=== PATIENT | female | born 1940 | race Caucasian/White ===

== ENCOUNTER 2018-08-10 15:49 | Emergency (ER) | payer OTHER, MEDICAID ==
--- NOTE | 2018-08-10 15:49 | NUR ---
Pt is bib [facility] ambulance for full arrest. Per EMT, pt was at home, on couch, passed out, soiled herself, fell over and was foaming at the mouth. Paramedics arrived at 1530, CPR was performed, pt was given 4 rounds of epinephrine and 1 bicarb. Pt arrived in ED with full arrest. See cardiac arrest flowsheet for further details.
[2018-08-10] MEDS ORDERED: AMIODARONE HCL 900 MG in D5W 482 ML IV PRN (16:15)
--- NOTE | 2018-08-10 16:15 | NUR ---
Patient not known to be of DNR status. Respiratory therapy at bedside prior to placement. Size 7.5 ET tube placed by 21 cm at lip line. Cuff inflated with 10 cc of air. Auscultation of breath sounds over bilateral chest wall. ET tube secured with tape.
--- NOTE | 2018-08-10 16:23 | NUR ---
Daughter at bedside requesting to terminate ressucitative efforts at this time.
--- NOTE | 2018-08-10 16:25 | NUR ---
was pronounced by Dr. Benoit at 1625.
--- NOTE | 2018-08-10 16:32 | NUR ---
[facility] was called, spoke to January. Per January, there is no case for the chancellor due to no suspected case of drug use or abuse.
--- NOTE | 2018-08-10 18:02 | NUR ---
Called [facility] at and spoke with Dm. Referral ID is [id number].
--- NOTE | 2018-08-10 18:26 | NUR ---
Spoke with Teressa with [facility] .
--- NOTE | 2018-08-10 18:56 | NUR ---
Body was picked up by [facility] as per family request.
--- NOTE | 2018-08-10 18:56 | NUR ---
[facility] came to [facility] pt.
== END 2018-08-10 16:25 | disposition expired ==
LOC: SED 15:49
DX: I46.9 Cardiac arrest, cause unspecified (principal); I50.9 Heart failure, unspecified; J44.9 Chronic obstructive pulmonary disease, unspecified; E11.9 Type 2 diabetes mellitus without complications; Z86.79 Personal history of other diseases of the circulatory system
CPT/HCPCS: 31500; 92950; 99291; J0282; J7060